=== PATIENT | male | born 1965 | race Caucasian/White ===

== ENCOUNTER → 2019-09-19 | Outpatient (CLI) | payer OTHER ==
--- NOTE | 2019-09-19 13:13 | RADIOLOGY REPORT (SQ) ---
EXAM DESCRIPTION: DUPLEX ART/SIMON FLOW COMPLETE COMPLETED DATE/TIME: 09/19/2019 8:36 am REASON FOR STUDY: CKD III (N18.3) N18.3 CHRONIC KIDNEY DISEASE, STAGE 3 (MODERATE) COMPARISON: None. TECHNIQUE: Realtime and static grayscale images acquired. Selected color Doppler, velocities and spe ctral images recorded. LIMITATIONS: None. FINDINGS: RIGHT KIDNEY: RENAL ARTERY VELOCITIES: 141.5 cm/sec at the origin, 55.4 cm/sec at the midportion of the vessel, and 128.2 cm/sec at the hilum. The segmental artery PSV = 51.9 cm/sec. RENAL VEIN: Patent. VELOCITY RATIO: 1.6. Normal waveforms. KIDNEY: The right kidney measures 9.8 cm in length. The corticomedullary differentiation is preserv ed. There is no hydronephrosis, calcification or mass. LEFT KIDNEY: RENAL ARTERY VELOCITIES: 95.4 cm/sec at the origin, 141.8 cm/sec at the midportion of the vessel, and 82.7 cm/sec at the hilum. The segmental artery PSV = 60.0 cm/sec. RENAL VEIN: Patent. VELOCITY RATIO: 1.0. Normal waveforms. KIDNEY: The left kidney measures 9.5 cm in length. The corticomedullary differentiation is preserve d. There is no hydronephrosis, calcification or mass. BLADDER: Normal. OTHER: No other finding. IMPRESSION: No Doppler evidence of renal artery stenosis. COMMENT: NORMAL RENAL ARTERY/AORTA VELOCITY RATIO IS LESS THAN OR EQUAL TO 3.5. TECHNICAL DOCUMENTATION: JOB ID: [id number] 2010 [employer]- All Rights Reserved Reading location - IP/workstation name: [email or web address]
== END ==
LOC: RAD 07:22
PROVIDERS: ATTEND Physician Assistant Medical
DX: I12.9 Hypertensive chronic kidney disease with stage 1 through stage 4 chronic kidney disease, or unspecified chronic kidney disease (principal); N18.3 Chronic kidney disease, stage 3 (moderate)
CPT/HCPCS: 93975